=== PATIENT | male | born 1930 | race Caucasian/White ===

== ENCOUNTER 2018-04-15 05:53 | Day surgery (SDC) | payer MEDICARE ==
[2018-04-13 12:36] LABS: BASOPHILS % (AUTO) 0.6 % (0-1); EOSINOPHILS # (AUTO) 0.2 X10'3 (0-0.9); EOSINOPHILS % (AUTO) 3.2 % (0-6); LYMPHOCYTES % (AUTO) 13.9 % (21-51); MEAN CORPUSCULAR HEMOGLOBIN 35.5 PG (27.0-31.0); MEAN CORPUSCULAR HGB CONC 34.1 % (33.0-36.5); MEAN CORPUSCULAR VOLUME 104.3 FL (78-98); MEAN PLATELET VOLUME 8.1 FL (7.4-10.4); MONOCYTES # (AUTO) 0.5 X10'3 (0-0.9); MONOCYTES % (AUTO) 7.2 % (2-12); NEUTROPHILS # (AUTO) 5.2 X10'3 (1.8-7.7); NEUTROPHILS % (AUTO) 75.1 % (42-75); PRE OP PLATELET COUNT 168 X10'3 (140-440); RED BLOOD COUNT 3.93 X10'6 (4.70-6.10); RED CELL DISTRIBUTION WIDTH 14.2 % (11.5-14.5)
[2018-04-13 12:37] LABS: CLARITY,URINE CLEAR (Clear); COLOR,URINE YELLOW (Yellow); GLUCOSE, URINE NEGATIVE (Neg); KETONES,URINE NEGATIVE (Neg); LEUKOCYTE ESTERASE ,URINE NEGATIVE (Neg); NITRITES, URINE NEGATIVE (Neg); OCCULT BLOOD,URINE NEGATIVE (Neg); PH,URINE 5.5 (4.8-8.0); PROTEIN,URINE NEGATIVE (Neg); UROBILINOGEN,URINE 0.2 E.U/dL (0.2-1.0)
[2018-04-13 12:38] LABS: UA COLLECTION TYPE CLN CATCH MIDSTREAM
[2018-04-13 12:46] LABS: PRE OP PROTIME 10.1 SECONDS (9.0-12.0)
[2018-04-13 12:51] LABS: ALBUMIN/GLOBULIN RATIO 1.3 (1.1-1.5); ALKALINE PHOSPHATASE 62 IU/L (46-116); BLOOD UREA NITROGEN 17 MG/DL (7-18); BUN/CREATININE RATIO 15.6 (5.4-32.0); CALCIUM 9.5 MG/DL (8.5-10.1); CHLORIDE 103 MMOL/L (99-107); CREATININE 1.09 MG/DL (0.60-1.10); PRE OP ALT 27 U/L (30-65); PRE OP ANION GAP 5 (8-16); PRE OP AST 18 U/L (10-37); PRE OP BILIRUB, TOTAL 1.1 MG/DL (0.0-1.0); PRE OP GLUCOSE 101 MG/DL (70-104); PRE OP POTASSIUM 4.8 MMOL/L (3.4-5.1); PRE OP SODIUM 139 MMOL/L (135-145); TOTAL CARBON DIOXIDE 30.8 MMOL/L (24-32); TOTAL PROTEIN 7.2 G/DL (6.4-8.2); eGFR 64 ML/MIN
[2018-04-15] VITALS (16 sets, daily range): BP systolic 127–142; BP diastolic 42–69
[~2018-04-15] VITALS: Ht 188 cm; Wt 71.8 kg
[~2018-04-15 05:53] MED LIST: AMLO2.5T2 PO; ATOR40TA PO; CHOL200013 PO; Cefazolin 2GM/50ML dext iso,osmotic IVPB IV ONE; PARO30TA4 PO; famotidine 20mg tablet PO ONE; ringers solution, lacted 1,000 ML IV SCH
[2018-04-15] MEDS ORDERED: LIDOcaine 1% (10mg/ml) 2ml vial ONE (05:59)
[2018-04-15] MEDS ORDERED: BUPIVAcaine/PF 2.5mg/ml (0.25%) 10ml vial ONE (06:40)
[2018-04-15] MEDS ORDERED: ceFAZolin 1000mg inj ONE (06:40)
[2018-04-15] MEDS ORDERED: midazolam 2 mg/2 ml injection ONE (07:54)
[2018-04-15] MEDS ORDERED: fentaNYL/PF 50MCG/1 ML 2ML syringe ONE (07:54)
[2018-04-15] MEDS ORDERED: rocuronium 10mg/ml inj IV ONE (07:56)
[2018-04-15] MEDS ORDERED: ondansetron/PF 4mg/2ml inj ONE (07:56)
[2018-04-15] MEDS ORDERED: dexamethasone sod phosphate 4mg/ml inj. ONE (07:56)
[2018-04-15] MEDS ORDERED: LIDOcaine 2% (20mg/ml) 5ml vial ONE (07:56)
[2018-04-15] MEDS ORDERED: propofol inj 20 ML IV ONE (07:56)
[2018-04-15] MEDS ORDERED: hydrALAZINE 20mg/ml inj. IV PRN (08:05)
[2018-04-15] MEDS ORDERED: labetalol 20mg/4ml (5mg/ml) syringe IV PRN (08:05)
[2018-04-15] MEDS ORDERED: ringers solution, lacted 1,000 ML IV SCH (08:05)
[2018-04-15] MEDS ORDERED: morphine 4 MG/ML inj SYRINge IV PRN ×2 (08:05)
[2018-04-15] MEDS ORDERED: fentaNYL/PF 50MCG/1 ML 2ML syringe IV PRN ×2 (08:05)
[2018-04-15] MEDS ORDERED: ondansetron/PF 4mg/2ml inj IV PRN (08:05)
[2018-04-15] MEDS ORDERED: sevoflurane 250ml liquid IH ONE (09:06)
[2018-04-15] MEDS ORDERED: ePHEDrine 50MG/ML INJ. ONE (09:29)
[2018-04-15] MEDS ORDERED: ROPIVAcaine 0.5% (5mg/ml) 30ml vial ONE (09:56)
[2018-04-15] MEDS ORDERED: HYDROcodone/acetaminophen 10/325mg tab PO ONE (11:05)
== END 2018-04-15 13:15 | disposition home or self-care (01) ==
LOC: PAS 05:53
PROVIDERS: ATTEND Surgery
DX: K40.90 Unilateral inguinal hernia, without obstruction or gangrene, not specified as recurrent (principal); I44.7 Left bundle-branch block, unspecified; I25.810 Atherosclerosis of coronary artery bypass graft(s) without angina pectoris; I10 Essential (primary) hypertension; G89.18 Other acute postprocedural pain; Z72.89 Other problems related to lifestyle; Z85.46 Personal history of malignant neoplasm of prostate; Z79.01 Long term (current) use of anticoagulants; Z90.79 Acquired absence of other genital organ(s); Z95.1 Presence of aortocoronary bypass graft; Z79.82 Long term (current) use of aspirin; Z79.899 Other long term (current) drug therapy; Z98.890 Other specified postprocedural states
CPT/HCPCS: 36415; 49505; 64450; 71046; 80053; 81003; 85025; 85610; 85730; 93005; A6257; C1781; J0690; J1100; J2001; J2250; J2405; J2704; J2795; J3010; J3490; J7120; 88302; A7000

== ENCOUNTER 2019-06-05 11:42 | Emergency (ER) | payer MEDICARE ==
[~2019-06-05] VITALS: Ht 185.4 cm; Wt 72.5 kg
[~2019-06-05 11:42] MED LIST changes: -Cefazolin 2GM/50ML dext iso,osmotic IVPB IV ONE; -famotidine 20mg tablet PO ONE; -ringers solution, lacted 1,000 ML IV SCH
[2019-06-05 12:01] VITALS: BP 123/54
== END 2019-06-05 14:42 | disposition home or self-care (01) ==
LOC: ER 11:42
DX: S62.92XA Unspecified fracture of left hand, initial encounter for closed fracture (principal); S60.032A Contusion of left middle finger without damage to nail, initial encounter; S60.052A Contusion of left little finger without damage to nail, initial encounter; Z79.899 Other long term (current) drug therapy; W18.39XA Other fall on same level, initial encounter; Y93.89 Activity, other specified; Y92.89 Other specified places as the place of occurrence of the external cause; Y99.8 Other external cause status
CPT/HCPCS: 99285

== ENCOUNTER 2019-10-04 12:54 | Emergency (ER) | payer MEDICARE ==
[~2019-10-04] VITALS: Ht 185.4 cm; Wt 63.6 kg
[2019-10-04] MEDS ORDERED: normal saline 1000ml 1,000 ML IV ONE ×2 (13:25→14:55)
[2019-10-04 14:17] LABS: EOSINOPHILS % (AUTO) 0.1 % (0-6); HEMOGLOBIN 13.7 g/dl (14.0-17.9); LYMPHOCYTES # (AUTO) 0.5 X10'3 (1.1-4.8); MEAN PLATELET VOLUME 7.9 FL (7.4-10.4)
[2019-10-04 14:18] LABS: BASOPHILS % (AUTO) 0.2 % (0-1); HEMATOCRIT 40.7 % (42.0-52.0); LYMPHOCYTES % (AUTO) 5.5 % (21-51); MEAN CORPUSCULAR HEMOGLOBIN 34.2 PG (27.0-31.0); MEAN CORPUSCULAR HGB CONC 33.6 g/dL (33.0-36.5); MONOCYTES # (AUTO) 0.5 X10'3 (0-0.9); MONOCYTES % (AUTO) 5.3 % (2-12); NEUTROPHILS # (AUTO) 8.9 X10'3 (1.8-7.7); NEUTROPHILS % (AUTO) 88.9 % (42-75); PLATELET COUNT 227 X10'3 (140-440); RED BLOOD COUNT 3.99 X10'6 (4.70-6.10); RED CELL DISTRIBUTION WIDTH 13.6 % (11.5-14.5); WHITE BLOOD COUNT 10.1 X10'3 (4.5-11.0)
[2019-10-04 14:37] LABS: ALANINE AMINOTRANSFERASE 34 U/L (12-78); ALBUMIN 3.7 G/DL (3.4-5.0); ALKALINE PHOSPHATASE 105 IU/L (46-116); ANION GAP 3 (8-16); ASPARTATE AMINO TRANSFERASE 17 U/L (10-37); BILIRUBIN,TOTAL 0.6 MG/DL (0.1-1.0); BLOOD UREA NITROGEN 28 MG/DL (7-18); BUN/CREATININE RATIO 31.5 (5.4-32.0); CALCIUM 9.8 MG/DL (8.5-10.1); CHLORIDE 106 MMOL/L (99-107); CREATININE 0.89 MG/DL (0.60-1.10); GLUCOSE 105 MG/DL (70-104); POTASSIUM 4.4 MMOL/L (3.5-5.1); SODIUM 142 MMOL/L (135-145); TOTAL CARBON DIOXIDE 33.3 MMOL/L (24-32); TOTAL PROTEIN 7.5 G/DL (6.4-8.2); eGFR 81 ML/MIN
[2019-10-04 15:54] VITALS: BP 155/90
== END 2019-10-04 15:57 | disposition home or self-care (01) ==
LOC: ER 12:55
DX: E86.0 Dehydration (principal); R55 Syncope and collapse; I10 Essential (primary) hypertension; Z79.899 Other long term (current) drug therapy
CPT/HCPCS: 36415; 70450; 71045; 72125; 80053; 83735; 83880; 84484; 85025; 93005; 96360; 96361; 99284; J7030